=== PATIENT | female | born 1935 | race Caucasian/White ===

== ENCOUNTER 2017-02-08 21:30 | Inpatient (IN) ==
[2017-02-08 23:06] LABS: URINE CULTURE NEEDED? NO; URINE MICRO REVIEW NEEDED? NO; URINE SOURCE CATH
[2017-02-08 23:16] LABS: BILIRUBIN URINE NEGATIVE (NEGATIVE); BLOOD URINE SMALL (NEGATIVE); COLOR YELLOW; GLUCOSE URINE NEGATIVE (NEGATIVE); LEUKOCYTES URINE NEGATIVE (NEGATIVE); NITRITE URINE NEGATIVE (NEGATIVE); PROTEIN URINE TRACE mg/dL (NEGATIVE); TURBIDITY URINE CLEAR (CLEAR); UROBILINOGEN URINE NORMAL (NORMAL)
[2017-02-08 23:18] LABS: UR EPITHELIAL CELLS <10 /HPF (<10); URINE BACTERIA NEGATIVE /HPF; URINE RBC <10 /HPF (<10); URINE WBC <10 /HPF (<10)
[2017-02-08 23:47] LABS: ALLEN TEST YES; BLOOD TYPE ARTERIAL; DRAW SITE R RADIAL; METHB 1.7 % (0.0-1.5); O2(CT) 14.4 mL/dL (15.0-23.0); PO2(98.6) 84 mmHg (60-100); SAMPLE BLOOD; SAO2 98.9 % (95.0-100.0); THB 10.7 g/dL (11.5-17.4); pH(98.6) 7.26 (7.35-7.45)
[2017-02-08 23:49] LABS: MODALITY BI PAP; PCO2(98.6) 115 mmHg (35-45)
[2017-02-08 23:57] LABS: MANUAL DIFF NEEDED? NO
[2017-02-09 00:11] LABS: INR 0.98; PROTIME 10.3 Seconds (9.2-11.7)
[2017-02-09 00:13] LABS: BASO% 0.2 % (0.0-0.8); EOS# 0.02 X1000 (0.0-0.7); EOS% 0.4 % (0.0-10.0); HEMATOCRIT 40.3 % (37.0-47.0); HEMOGLOBIN 11.7 g/dL (12.0-16.0); IMM GRAN# 0.08 X1000 (0.0-0.04); IMM GRAN% 1.5 % (0.0-0.5); LYMPH# 0.84 X1000 (1.2-3.4); LYMPH% 15.5 % (20.5-51.1); MCH 27.2 PG (27-31); MCV 93.7 FL (81-99); MONO% 5.5 % (1.7-9.3); MPV 12.3 FL (7.4-10.4); NEUT% 76.9 % (42.2-75.2); PLT 85 X1000 (130-400)
[2017-02-09 00:43] LABS: AGAP 8; ALBUMIN 4.3 g/dL (3.5-5.0); ALKALINE PHOSPHATASE 138 U/L (32-104); BUN 10 mg/dL (8-22); CALCIUM 9.5 mg/dL (8.8-10.2); CHLORIDE 92 mmol/L (98-107); COSMO 285; GOT 26 U/L (10-30); GPT 15 U/L (10-36); POTASSIUM 4.2 mmol/L (3.5-5.1); SODIUM 142 mmol/L (136-145); TCO2 42 mmol/L (25-35)
--- NOTE | 2017-02-09 00:59 | PROVIDER DOCUMENTATION ---
This chart was entered by Jane Ivey Scribe, acting as scribe for Edward Robles MD. HPI-General Adult - General Chief Complaint: Unresponsive Stated Complaint: unresponsive Time Seen by Provider: 02/08/17 22:07 Source: family Allergies/Adverse Reactions: Patient Allergies Allergy/AdvReac Type Severity Reaction Status Date / Time alendronate sodium Allergy Unknown Unknown Verified 12/27/16 10:33 [From Fosamax] penicillin V potassium * Allergy Unknown Unknown Verified 12/27/16 10:33 [From Pen-Vee K] sulfamethoxazole Allergy Unknown Unknown Verified 12/27/16 10:33 [Sulfamethoxazole] Home Medications: Home Medication List Medication Instructions Recorded Confirmed Last Taken Type Amlodipine [Norvasc] 5 mg PO QAM 02/11/13 02/09/17 02/08/17 History Atenolol [Tenormin] 25 mg PO QAM 02/11/13 02/09/17 02/08/17 History Calcitonin,Neely,Synthetic 200 unit NS QA 02/11/13 02/09/17 02/08/17 History [Fortical] LISINOpril [Prinivil] 10 mg PO BID 02/11/13 02/09/17 02/08/17 History Docusate Sodium [Colace] 100 mg PO BID #0 capsule 03/09/13 02/09/17 02/08/17 Rx Magnesium Hydroxide [Milk of 30 ml PO PRN PRN #0 udc 03/09/13 02/09/17 12/27/16 Rx Magnesia] Furosemide 20 mg PO DAILY 12/27/16 02/09/17 02/08/17 History Acetaminophen [Tylenol] 650 mg PO Q6H PRN PRN #0 tablet 12/30/16 02/09/17 Rx Hydrocodone/APAP 5 mg/325 mg 1 each PO Q4H PRN PRN #20 tablet 12/30/16 02/09/17 02/08/17 Rx [[place]-5] Ciprofloxacin HCl [Cipro] 500 mg PO BID 02/09/17 02/09/17 02/08/17 History Fluticasone 50 Mcg Nasal Philipp 2 spray AYANA DAILY 02/09/17 02/09/17 Unknown History [Flonase] Ibuprofen 200 mg PO Q4HR PRN 02/09/17 02/09/17 Unknown History Loperamide [Imodium] 2 mg PO PRN PRN 02/09/17 02/09/17 Unknown History Polyethylene Glycol 3350 [Miralax] 17 gm PO PRN PRN 02/09/17 02/09/17 Unknown History Potassium Chloride [Klor-Con 10] 10 meq PO DAILY 02/09/17 02/09/17 02/08/17 History - History of Present Illness -Gen Adult Nature of Presenting Problems: 81 Y/O F presents to ED with Unresponsive. EMS was called to [facility] facility due to them not being able to arouse the Pt. The pt was able to be aroused by EMS. Pt was sitting in a chair sleeping. Pt is currently on narco's for pelvix fx. prison states pt O2 wasn't stating over 50, stating 98 in ED. Pt has a hx of respiratory issues. Family c/o of pt being confused, wobbly, and weakness, with shaking. Location of Pain/Injury: reports: generalized Pain Radiation: reports: no radiation Quality of Pain: reports: none Severity: reports: mild, moderate Onset/Duration: reports: this evening Timing: reports: still present, changing over time Associated Symptoms: reports: shortness of breath, weakness, trouble walking. denies: diarrhea Similar Symptoms Previously?: Yes Review of Systems - Adult - REVIEW OF SYSTEMS - ADULT Constitutional: denies: chills, fever Eyes: reports: no symptoms reported Ears, Nose, Mouth & Throat: reports: no symptoms reported Cardiovascular: reports: no symptoms reported Respiratory: reports: shortness of breath Gastrointestinal: reports: no symptoms reported Genitourinary: reports: no symptoms reported Musculoskeletal: reports: muscle weakness Integumentary: reports: no symptoms reported Neurological: reports: loss of balance, other (unresponsive) Psychiatric: reports: no symptoms reported Endocrine: reports: no symptoms reported Hematologic/Lymphatic: reports: no symptoms reported Allergic/Immunologic: reports: no symptoms reported All Other Systems: Reviewed and Negative Past History - Adult - PAST MEDICAL HISTORY-ADULT Review of Records: reports: Old Records Reviewed, Nursing Assessment Review, Medications Reviewed, Social history reviewed & non-contributory. Major Childhood Illnesses: reports: denies history Cardiovascular: reports: cardiac disease, HTN - PRIOR SURGERIES/PROCEDURES Surgical/Procedure History: reports: appendectomy, tonsillectomy - IMMUNIZATION STATUS Childhood Immunizations: See Nurse Assessment Flu Vaccine: See Nurse Assessment - SOCIAL HISTORY Smoking: non-smoker Substance Use: none/never Alcohol Use Frequency: never Living Situation: care facility Physical Exam-General - PHYSICAL EXAM-ADULT Initial Vital Signs Reviewed: Yes - CONSTITUTIONAL General Appearance: appears well, alert, no apparent distress - EYES Eyes: PERRL/EOMI, pink conjunctivae - HEAD, EARS, NOSE, MOUTH & THROAT HENMT: normocephalic/atraumatic, TMs normal, pharynx normal, hearing deficit - NECK Neck: non-tender, full range of motion, supple, normal inspection - RESPIRATORY Respiratory: chest non-tender, lungs clear, normal breath sounds - CARDIOVASCULAR Cardiovascular: normal peripheral pulses, regular rate, rhythm - GASTROINTESTINAL (ABDOMEN) Abdominal Exam: normal bowel sounds, non tender, soft - LYMPHATIC Lymphatic: no adenopathy - MUSCULOSKELETAL Back Exam: normal inspection, no CVA tenderness, no vertebral tenderness - SKIN Integumentary: normal color, normal turgor - PSYCHIATRIC Psych/Mental Status: normal mood/affect Progress - PLAN OF CARE/RESULTS Progress/Plan/Lab Results: Vital Signs - 8 hr 02/08/17 21:42 02/08/17 22:38 Temperature 98.1 F 98.3 F Pulse Rate 77 67 Respiratory Rate 22 24 Blood Pressure 151/69 159/58 O2 Sat by Pulse Oximetry 94 L 99 Laboratory Results - last 24 hr 02/08/17 02/08/17 02:58 22:09 POC Glucose 161 H Urine Source CATH Urine Color YELLOW Urine Turbidity CLEAR Urine pH 6.0 Ur Specific [place] 1.010 Urine Protein TRACE A Ur Glucose (Stick) NEGATIVE Ur Ketones (Stick) NEGATIVE Urine Blood SMALL A Urine Nitrite NEGATIVE Urine Bilirubin NEGATIVE Urobilinogen Dipstick NORMAL Urine Leukocytes NEGATIVE Urine WBC (Auto) <10 Urine RBC (Auto) <10 U Epithel Cells (Auto) <10 Urine Bacteria (Auto) NEGATIVE Orders Category Date Time Status HEAD W/O CONTRAST [CT] Stat Exams 02/08/17 23:07 Ordered ABG [RESP] Routine Lab 02/08/17 23:20 Ordered URINALYSIS W/POSS RFLX CULT [URINALYSIS] Stat Lab 02/08/17 02:58 Completed EKG [EKG] Stat Ther 02/08/17 21:54 Ordered Result Diagrams: 02/08/17 23:00 02/08/17 23:00 - CT/MRI 1 CT Study: Head Impression: Normal CT Results: No blood, chronic ischemic changes - CONSULTS/PCP/HOSPITALIST Notification #1 *Consult/PCP/Hospitalist*: Time Discussed: 00:56 Reason/Comments: Admit Consult Disposition: Admit (Admit Accepted) Departure - Departure Time of Disposition Decision: 00:58 DIAGNOSIS: Respiratory failure Disposition: ADMITTED INPATIENT 09 Certified Medical Emergency: Emergent Condition: Serious Referrals and Follow-Ups: Otilio Coronado MD [Primary Care Provider] - - Critical Care Note This patient required my direct & personal management of CC.: Yes Attestation - Physician/ FINN Attestation Patient care was provided by Advanced Practice Provider:: Yes Advanced Practice Provider documentation review:: The Mid-level provider documentation, treatment plan and medical decision making was reviewed by the physician who agrees with all treatment and medical decision making by the MLP. The physician spent face to face time with patient:: Yes Advanced Practice Provider documentation review:: The physician spent face to face time with this patient and agrees with all MLP documentation, treatment, and medical decision making by the MLP. See provider notes for further information. This chart was documented by the indicated scribe, (Jane Ivey Scribe) and accurately reflects the services I performed and decisions made by me, Edward Robles MD, as attested by the provider's signature.
[2017-02-09 01:09] LABS: ALLEN TEST YES; BE 22.7 mmoll (-3.0-3.0); BLOOD TYPE ARTERIAL; DRAW SITE R RADIAL; METHB 1.5 % (0.0-1.5); O2(CT) 13.3 mL/dL (15.0-23.0); PO2(98.6) 90 mmHg (60-100); SAMPLE BLOOD; SAO2 100.9 % (95.0-100.0); THB 9.7 g/dL (11.5-17.4); pH(98.6) 7.51 (7.35-7.45)
[2017-02-09 01:10] LABS: MODALITY BI PAP; PCO2(98.6) 61 mmHg (35-45)
--- NOTE | 2017-02-09 02:04 | HISTORY AND PHYSICAL ---
PRIMARY CARE PHYSICIAN: Dr. Otilio Coronado. CHIEF COMPLAINT: Shortness of breath and found unresponsive. HISTORY OF PRESENTING ILLNESS: An 81-year-old female with a history of post-polio syndrome, with left-sided weakness, and requiring continuous oxygen and BiPAP at night, who had presented to our emergency department because somehow her BiPAP hose was kinked, so the patient was found unresponsive, in respiratory distress. She was brought to the emergency department. She was put on BiPAP. She had some improvement. However, she was mildly confused. As per family, she was recently treated for a UTI, but just started on her medications just yesterday. The patient's family states that they did not want any aggressive intervention, and were considering hospice about patient. At the time of my examination, the patient was mildly confused, and most of the history is obtained from the family members. PAST MEDICAL HISTORY: Includes post-polio syndrome, with left-sided weakness, pelvic fractures, hypertension. PAST SURGICAL HISTORY: Cataract surgery, appendectomy, lumpectomy. ALLERGIES: Penicillin, sulfa. CURRENT MEDICATIONS: As listed in the MAR. SOCIAL HISTORY: No history of smoking, alcohol, or illicit drug use. She resides at an assisted living facility and uses a walker. FAMILY HISTORY: Positive for coronary artery disease in father. REVIEW OF SYSTEMS: A 12-point review of systems listed as in HPI. Other systems all negative. PHYSICAL EXAMINATION: GENERAL: Patient is in [id number] respiratory distress, and is on a BiPAP. VITAL SIGNS: Temperature 98.1 degrees, pulse 77, respiration 22, blood pressure 151/69. HEENT: Atraumatic, normocephalic. NECK: No masses. CHEST: Bibasilar rales. CARDIOVASCULAR: Regular rate and rhythm. ABDOMEN: Soft. Positive bowel sounds. EXTREMITIES: No edema. NEUROLOGIC: She is awake and arousable. GENITOURINARY: No bladder distention. SKIN: Warm. LABORATORIES AND STUDIES: WBC 5.42, hemoglobin 11.7, hematocrit 40.3, platelets 85,000. ABG shows pCO2 of 115. Sodium 142, potassium 4.2, chloride 92, CO2 is 42, BUN is 10, creatinine 0.5, glucose high is 150. ASSESSMENT: An 81-year-old female with a history of post-polio syndrome, with left-sided weakness, requiring continuous oxygen and BiPAP at night. Somehow, her BiPAP hosing was kinked, and she became unresponsive. She was brought to the emergency department in respiratory distress. She was put on BiPAP. She had improvement. She will need hospitalization for further management. 1. Acute respiratory failure. 2. Hypercapnia. 3. Post-polio syndrome. 4. Recent treatment for urinary tract infection. 5. Hypertension. 6. Patient's family confirmed she is a DNR status. 7. We will put patient on DVT prophylaxis with SCDs. 8. Patient's condition is guarded. We will also consult social media content manager to arrange possible hospice versus placing patient in a [facility]dc long-term. cc: Corbin Benavides MD
[2017-02-09] MEDS ORDERED: ZOFRAN IV PRN (03:31)
[2017-02-09] MEDS ORDERED: NORCO-5 PO PRN (03:31)
[2017-02-09] MEDS: LEVAQUIN 500 MG/D5W 500 MG/100 ML IVPB IV SCH (03:46)
--- NOTE | 2017-02-09 06:17 | EKG Report ---
Test Performed on : 02/08/2017 9:52:10 PM Test Reason : AMS Blood Pressure : / mmHG Vent. Rate : 076 BPM Atrial Rate : 076 BPM P-R Int : 128 ms QRS Dur : 074 ms QT Int : 400 ms P-R-T Axes : 042 124 056 degrees QTc Int : 450 ms Normal sinus rhythm. Right axis deviation Septal infarct (cited on or before 11-FEB-2013) Abnormal ECG When compared with ECG of 27-DEC-2016 10:12, No significant change was found Unconfirmed Result
[2017-02-09] MEDS: LASIX PO SCH ×2 (08:32→08:37)
[2017-02-09] MEDS: FORTICAL NAS SCH (08:32)
[2017-02-09] MEDS: COLACE PO SCH ×2 (08:32→20:27)
[2017-02-09] MEDS: NORVASC PO SCH (08:33)
[2017-02-09] MEDS: TENORMIN PO SCH (08:33)
[2017-02-09] MEDS: PRINIVIL PO SCH ×2 (08:33→20:27)
--- NOTE | 2017-02-09 08:33 | Diag Imaging Result Document ---
PROCEDURE NAME: CHEST-1 VIEW - 02/09/2017 SINGLE FRONTAL RADIOGRAPH OF THE CHEST: COMPARISON: 12/27/2016. FINDINGS: There is thoracic scoliosis that is stable. There is stable elevation of the right hemidiaphragm with right basilar atelectasis versus scarring. There is even milder scarring versus atelectasis at the left costophrenic angle that can be seen on previous studies as well. No new consolidation is identified. Cardiac silhouette is stable and grossly unremarkable. Central vasculature is unremarkable. IMPRESSION: Bibasilar scarring versus atelectasis that is also seen on previous studies. Otherwise, no definite acute pathology.
--- NOTE | 2017-02-09 18:14 | CONSULTATION ---
DATE OF CONSULTATION: 02/09/2017 PULMONARY CONSULTATION: REQUESTING PHYSICIAN: Dr. Corbin Benavides. REASON FOR CONSULTATION: Altered mental status and respiratory failure. HISTORY OF PRESENT ILLNESS: Ms. Malin is an 81-year-old white female, nonsmoker, with BiPAP dependent secondary to post-polio syndrome, chronic elevation of the hemidiaphragm, who had a pelvic fracture earlier this year. The patient was transferred to rehab, but quickly required readmission to [facility] for altered mental status and respiratory failure. The patient did recover and was transferred back to the custodial. The patient was seen in my office earlier this week, and was informed that she needed to transition out of assisted living into a full care facility. If patient's BiPAP becomes disconnected or she could not get it in place, she will become unresponsive. The patient was found unresponsive by her daughter and was brought to the emergency room. She was initiated on BiPAP. She did improve and is now awake and alert and is eating supper. PAST MEDICAL HISTORY: 1. Post-polio syndrome. 2. Kyphoscoliosis. 3. Chronic hypoxemic and hypercapnic respiratory failure. 4. Chronic elevation of the right hemidiaphragm. SOCIAL HISTORY: She lives in assisted living. She has a very attentive family. FAMILY HISTORY: Noncontributory to current presentation. REVIEW OF SYSTEMS: Negative except for fatigue and generalized weakness. PHYSICAL EXAMINATION: General: Reveals an elderly white female, who is awake, alert and conversant. She did have visual hallucinations earlier today. Vital Signs: BP 144/40, heart rate 70, respiration rate 18, oxygen saturation 95% on 5 L per nasal cannula. HEENT: Pupils are equal reactive. Oropharynx is clear. Neck: Supple. Chest: Reveals diminished breath sounds right base. Cardiac Exam: Distant heart sounds. Normal S1, normal S2. Abdomen: Soft, without hepatosplenomegaly. Extremities: Reveal trace edema. DIAGNOSTIC DATA: Laboratories: Arterial blood gas on presentation to the emergency room; pH 7.26, pCO2 of 115, PO2 of 84. Arterial blood gas this morning; pH 7.51, pCO2 of 61, PO2 of 90. Chest x-ray: No acute changes. CT scan of the brain: No acute infarcts or bleeds. IMPRESSION: An 81-year-old with progressive hypercapnic and hypoxemic respiratory failure, chronic elevation of the right hemidiaphragm, with rapid decompensation if her BiPAP becomes interrupted. Patient's family was in the room. They are aware that she will need to transition to a facility which will provide 24 hour observation. She will need to transition out of assisted living or if she remains in assisted living she will need a caregiver present 24 hours a day. Her overall prognosis is guarded to poor and she has had a clear decline following her pelvic fracture. Her current DNR status is level 1 and I agree with this code status. She would be difficult to liberate from a mechanical ventilator if she required intubation. RECOMMENDATIONS: 1. Okay for discharge home on 02/10/2017. 2. Patient will need to transition to a full-time facility and transition out of assisted living. 3. Long-term prognosis is guarded. If she has further decline, hospice would be recommended. cc: Kennedy Carlson MD
[2017-02-10] MEDS: LEVAQUIN 500 MG/D5W 500 MG/100 ML IVPB IV SCH (04:07)
[2017-02-10 05:02] LABS: MANUAL DIFF NEEDED? NO
[2017-02-10 05:14] LABS: BASO% 0.2 % (0.0-0.8); EOS# 0.09 X1000 (0.0-0.7); HEMATOCRIT 33.1 % (37.0-47.0); HEMOGLOBIN 9.8 g/dL (12.0-16.0); LYMPH# 1.05 X1000 (1.2-3.4); LYMPH% 23.7 % (20.5-51.1); MCH 26.8 PG (27-31); MCHC 29.6 g/dL (33-37); MCV 90.4 FL (81-99); MONO# 0.43 X1000 (0.11-0.59); MONO% 9.7 % (1.7-9.3); MPV 11.1 FL (7.4-10.4); NEUT% 64.4 % (42.2-75.2); PLT 97 X1000 (130-400); RBC 3.66 XMIL (4.2-5.4)
[2017-02-10 05:30] LABS: AGAP 3; BUN 9 mg/dL (8-22); CALCIUM 9.3 mg/dL (8.8-10.2); CHLORIDE 96 mmol/L (98-107); COSMO 282; POTASSIUM 3.5 mmol/L (3.5-5.1); SODIUM 142 mmol/L (136-145); TCO2 43 mmol/L (25-35)
--- NOTE | 2017-02-10 07:21 | Diag Imaging Result Document ---
PROCEDURE NAME: HEAD W/O CONTRAST - 02/08/2017 CT BRAIN WITHOUT CONTRAST: COMPARISON: Compared to 12/27/2016. TECHNIQUE: Dose-reduction protocol. FINDINGS: No parenchymal hemorrhage. No epidural or subdural hematoma. No subarachnoid hemorrhage. There are chronic microvascular ischemic changes. No hydrocephalus. No sinus opacification. IMPRESSION: 1. No hemorrhage. 2. Chronic microvascular ischemic changes. A preliminary report was given at 11:41 p.m.
[2017-02-10] MEDS: PRINIVIL PO SCH (08:27)
[2017-02-10] MEDS: COLACE PO SCH (08:27)
[2017-02-10] MEDS: NORVASC PO SCH (08:27)
[2017-02-10] MEDS: FORTICAL NAS SCH (08:27)
[2017-02-10] MEDS: LASIX PO SCH (08:27)
[2017-02-10] MEDS: TENORMIN PO SCH (08:27)
[2017-02-10 11:33] VITALS: BP 145/55
--- NOTE | 2017-02-10 21:37 | DISCHARGE SUMMARY ---
ADMISSION DATE: 02/09/2017 DISCHARGE DATE: 02/10/2017 CONSULTATIONS: Kennedy Carlson MD, with Pulmonology. PERTINENT PROCEDURES: 1. Head CT showed no hemorrhage or chronic microvascular ischemic changes. 2. Chest x-ray showed bibasilar scarring versus atelectasis which was also seen on previous studies. Otherwise no definite acute pathology. DISCHARGE DIAGNOSES: 1. Progressive hypercapnic and hypoxemic respiratory failure. The patient is on BiPAP at bedtime. She will be discharged back to [facility]. The patient's overall prognosis is guarded to poor. Since the patient has had a decline following her pelvic fracture she is a DNR level 1 while admitted. The patient will need transfer to a full-time facility and transition out of assisted living. If she has further decline, hospice would be recommended. She is okay for discharge per Dr. Carlson. She is going to be re-examined by [facility]. 2. Post-polio syndrome. 3. Recent treatment for urinary tract infection. 4. Hypertension. 5. Recent pelvic fracture earlier in the year. Stable. 6. BiPAP dependence secondary to post-polio syndrome with chronic elevation of hemidiaphragm. HOSPITAL COURSE: Ms. Malin is an 81-year-old female, nonsmoker, who is BiPAP dependent at night secondary to post-polio syndrome. Chronic elevation of the hemidiaphragm. She suffered a pelvic fracture earlier this year. The patient was sent to rehabilitation that quickly required readmission to [facility] for altered mental status and respiratory failure. The patient did recover and transferred back to halfway. She was seen by Dr. Carlson earlier this week and informed that she needed to transition out of assisted living into a full care facility. If the patient's BiPAP becomes disconnected or she cannot get it back in place, she will come unresponsive. The patient was found unresponsive by her daughter and was brought to the emergency room. She was initiated on BiPAP and improved. She is now awake, alert and oriented. She has been able to eat. Dr. Carlson was consulted. The family was made aware that she would need to transition to a facility that can provide 24 hour observation and that her prognosis is guarded to poor, and that she had a clear decline following her pelvic fracture. The patient was made DNR level 1. She will be difficult to liberate from a mechanical ventilator if she requires intubation. She was okay for discharge today on 02/10/2017 with the patient transitioning to a long-term care facility and if further decline hospice would be recommended. The patient is going to be re-evaluated by [facility], her assisted living today and then she will be discharged. VITAL SIGNS: Temperature 98.5 degrees, heart rate 54, respirations 16, blood pressure is 145/55, O2 is 97% on nasal cannula. The patient does wear BiPAP at night. DISCHARGE DIET: Regular. DISCHARGE MEDICATIONS: As per Dr. Murray. Please see MAR. FOLLOWUP: The patient is being discharged back to her assisted living at [facility] with transitioning to long-term care or at least a 24 hour sitter. The patient will need to wear her BiPAP at night or if she does become unresponsive. If patient has any further decline in her health, Dr. Carlson strongly suggests hospice care. Patient can return to the ED for any worsening of symptoms. DISCHARGE TIME: 30 minutes. Dictated by LETTY Pisano for Rico Whitman MD cc: MD Otilio Avina MD
== END 2017-02-10 16:57 | disposition home health service (06) ==
LOC: ED 21:30 → SUATTDRO 02-09 02:53 → 3S 02-09 02:53
PROVIDERS: ATTEND Internal Medicine